=== PATIENT | male | born 1965 | race Two or more races ===

== ENCOUNTER 2024-04-06 11:37 | Inpatient (IN) | payer BC ==
--- NOTE | 2024-04-06 12:13 | ED ---
Upper Extremity HPI - General Chief Complaint: Extremity Injury, Upper Stated Complaint: Elbow Swelling Time Seen by Provider: 04/06/24 12:12 Source: patient, RN notes reviewed Mode of arrival: ambulatory Limitations: no limitations - History of Present Illness Initial Comments: 59 year old male presenting to the ER with a chief complaint of right elbow pain. Patient states approximately 2 weeks ago he accidentally hit his elbow and scraped it. He states since then he has been noticing swelling and pain to his right elbow. He reports on he started to notice redness spreading towards his hand and started to have pain with range of motion. Patient is not currently on any blood thinners. Tetanus status unknown. He denies any other injuries. Denies any fevers, chills or night sweats. No other complaints. - Related Data Home Medications Medication Instructions Recorded Confirmed Acetaminophen with Codeine 1 tab PO BID PRN 04/06/24 04/06/24 [Tylenol #4 Tablet] Aspirin EC [Ecotrin Low Dose] 81 mg PO DAILY 04/06/24 04/06/24 Dapagliflozin Propanediol [Farxiga] 10 mg PO DAILY 04/06/24 04/06/24 Gabapentin [Neurontin] 300 mg PO BID 04/06/24 04/06/24 Insulin Aspart Prot/Insuln Asp 25 units SQ DAILY 04/06/24 04/06/24 [NovoLOG MIX 70-30 Flexpen] Meloxicam [Mobic] 15 mg PO DAILY 04/06/24 04/06/24 Pioglitazone [Actos] 15 mg PO HS 04/06/24 04/06/24 Rosuvastatin [Crestor] 20 mg PO DAILY 04/06/24 04/06/24 Tirzepatide [Mounjaro] 5 mg SQ TU 04/06/24 04/06/24 lisinopriL [Zestril] 10 mg PO DAILY 04/06/24 04/06/24 metFORMIN HCL [Glucophage] 500 mg PO DAILY 04/06/24 04/06/24 valACYclovir HCL [Valtrex] 2,000 mg PO BID PRN 04/06/24 04/06/24 Allergies Allergy/AdvReac Type Severity Reaction Status Date / Time No Known Allergies Allergy Verified 04/06/24 15:20 Review of Systems ROS Statement: Those systems with pertinent positive or pertinent negative responses have been documented in the HPI. ROS Other: All systems not noted in ROS Statement are negative. Past Medical History Past Medical History: Diabetes Mellitus, Hypertension History of Any Multi-Drug Resistant Organisms: None Reported Past Surgical History: No Surgical Hx Reported Past Psychological History: No Psychological Hx Reported Smoking Status: Never smoker Past Alcohol Use History: Occasional Past Drug Use History: None Reported General Exam Limitations: no limitations General appearance: alert, in no apparent distress Respiratory exam: Present: normal lung sounds bilaterally. Absent: respiratory distress, wheezes, rales, rhonchi, stridor Cardiovascular Exam: Present: regular rate, normal rhythm, normal heart sounds. Absent: systolic murmur, diastolic murmur, rubs, gallop, clicks Extremities exam: Present: tenderness (Erythema and edema to right elbow. There is a fluctuant area over bursa. There is a 1 cm healed abrasion just proximal to elbow. There is surrounding erythema with distally spreading erythema.), other (2+ right dorsalis pedis pulse. Patient has full active range of motion but is painful.) Neurological exam: Present: alert, oriented X3, CN II-XII intact Skin exam: Present: warm, dry, intact, normal color. Absent: rash Course Vital Signs 04/06/24 04/06/24 04/06/24 11:39 13:48 15:45 Temperature 97.5 F L 98.5 F Pulse Rate 80 74 78 Respiratory 16 16 16 Rate Blood Pressure 150/82 125/69 125/73 O2 Sat by Pulse 99 100 97 Oximetry - Reevaluation(s) Reevaluation #1: 04/06/24 15:[address] White, [facility], for admission. Procedures - Incision & Drainage Consent Obtained: verbal consent Indication: bursitis Site: upper extremity (elbow) Size (cm): 7 Anesthetic Used: lidocaine 1%, without epi Amount (mLs): 2 I&D Cleaning Method: Chloroprep, Alcohol Wipe Sterile Field Used?: Yes Ultrasound used: No Needle Aspiration Performed?: Yes Irrigation Performed?: No I&D Drainage Obtained: Other (negative pressure no drainge) Patient Tolerated Procedure: well Medical Decision Making - Medical Decision Making Was pt. sent in by a medical professional or institution (, PA, MANUFACTURING PRODUCTION TECHNICIAN, urgent care, hospital, or care home...) When possible be specific @ -No Did you speak to anyone other than the patient for history (EMS, parent, family, police, friend...)? What history was obtained from this source @ -No Did you review nursing and triage notes (agree or disagree)? Why? @ -I reviewed and agree with nursing and triage notes Were old charts reviewed (outside hosp., previous admission, EMS record, old EKG, old radiological studies, urgent care reports/EKG's, care home records)? Report findings @ -No old charts were reviewed Differential Diagnosis (chest pain, altered mental status, abdominal pain women, abdominal pain men, vaginal bleeding, weakness, fever, dyspnea, syncope, headache, dizziness, GI bleed, back pain, seizure, CVA, palpatations, mental health, musculoskeletal)? @ -Differential Musculoskeletal: Muscular strain, contusion, ligament sprain, fracture, arthritis, septic arthritis, bursitis, cellulitis, muscle spasm, nerve compression, DVT, arterial occlusion, herpes zoster, electrolyte abnormality, tumor.... This is not meant to be in all inclusive list EKG interpreted by me (3pts min.). @ -None X-rays interpreted by me (1pt min.). @ -Right elbow x-ray interpreted me negative for acute osseous process. There is soft tissue edema. CT interpreted by me (1pt min.). @ -None done U/S interpreted by me (1pt. min.). @ -None done What testing was considered but not performed or refused? (CT, X-rays, U/S, la bs)? Why? @ -None What meds were considered but not given or refused? Why? @ -None Did you discuss the management of the patient with other professionals (professionals i.e. , PA, MANUFACTURING PRODUCTION TECHNICIAN, lab, RT, psych nurse, psychiatric social worker, document control assistant, teacher, horticultural technical officer, transplant case manager)? Give summary @ -Yes, case discussed with [facility], Dr. White. Was smoking cessation discussed for >3mins.? @ -No Was critical care preformed (if so, how long)? @ -No Were there social determinants of health that impacted care today? How? (Homelessness, low income, unemployed, alcoholism, drug addiction, transportation, low edu. Level, literacy, decrease access to med. care, care home, rehab)? @ -No Was there de-escalation of care discussed even if they declined (Discuss DNR or withdrawal of care, Hospice)? DNR status @ -No What co-morbidities impacted this encounter? (DM, HTN, Smoking, COPD, CAD, Cancer, CVA, ARF, Chemo, Hep., AIDS, mental health diagnosis, sleep apnea, morbid obesity)? @ -hypertension, diabetes Was patient admitted / discharged? Hospital course, mention meds given and route, prescriptions, significant lab abnormalities, going to OR and other pertinent info. @ -Admitted. 59 year old male presenting to the ER for evaluation of right elbow pain. History physical exam completed. Vitals within normal limits. Patient in no signs of acute distress and nontoxic-appearing. Right upper extremity neurovascular intact. There is significant edema and erythema to right elbow concerning of infection and /or bursitis. There is a 1 cm healed wound just proximal to elbow. Patient has full range of motion but is painful. Imaging obtained negative for acute osseous process, with soft tissue edema. Due to concern of septic bursitis laboratory studies obtained. Leukocytosis with a left shift WBC 14.6. CRP 14.2. Aspiration attempted but was unsuccessful in obtaining drainage, see note above. Due to laboratory studies and concern of septic bursitis admission was considered and discussed with [facility], Dr. White. Blood cultures obtained and patient started on vancomycin. Tetanus updated. Patient received PO tylenol for pain control in the ER. Orthopedics and infectious disease on consult. Patient agreeable for admission. Patient admitted in stable condition for further evaluation and treatment. Case discussed with ED attending, Dr. Christine. Undiagnosed new problem with uncertain prognosis? @ -No Drug Therapy requiring intensive monitoring for toxicity (Heparin, Nitro, Insulin, Cardizem)? @ -No Were any procedures done? @ -No Diagnosis/symptom? @ - r/o Septic bursitis Acute, or Chronic, or Acute on Chronic? @ -Acute Uncomplicated (without systemic symptoms) or Complicated (systemic symptoms)? @ -Complicated Side effects of treatment? @ -No Exacerbation, Progression, or Severe Exacerbation? @ -No Poses a threat to life or bodily function? How? (Chest pain, USA, ID, pneumonia, PE, COPD, DKA, ARF, appy, cholecystitis, CVA, Diverticulitis, Homicidal, Suicidal, threat to staff... and all critical care pts) @ -Yes, septic bursitis can lead to sepsis or septic arthritis. - Lab Data Result diagrams: 04/06/24 13:30 04/06/24 13:30 Lab Results 04/06/24 04/06/24 04/06/24 Range/Units 13:30 13:30 13:30 WBC 14.6 H (3.8-10.6) k/uL RBC 4.91 (4.30-5.90) m/uL Hgb 14.9 (13.0-17.5) gm/dL Hct 46.7 (39.0-53.0) % MCV 95.0 (80.0-100.0) fL MCH 30.3 (25.0-35.0) pg MCHC 31.9 (31.0-37.0) g/dL RDW 14.3 (11.5-15.5) % Plt Count 220 (150-450) k/uL MPV 8.6 Neutrophils % 75 % Lymphocytes % 14 % Monocytes % 7 % Eosinophils % 2 % Basophils % 0 % Neutrophils # 10.9 H (1.3-7.7) k/uL Lymphocytes # 2.0 (1.0-4.8) k/uL Monocytes # 1.1 H (0-1.0) k/uL Eosinophils # 0.2 (0-0.7) k/uL Basophils # 0.0 (0-0.2) k/uL Sodium 137 (137-145) mmol/L Potassium 5.0 (3.5-5.1) mmol/L Chloride 105 (98-107) mmol/L Carbon Dioxide 20 L (22-30) mmol/L Anion Gap 12 mmol/L BUN 29 H (9-20) mg/dL Creatinine 0.82 (0.66-1.25) mg/dL Est GFR (CKD-EPI)AfAm >90 (>60 ml/min/1.73 sqM) Est GFR (CKD-EPI)NonAf >90 (>60 ml/min/1.73 sqM) Glucose 81 (74-99) mg/dL Plasma Lactic Acid Kash 1.4 (0.7-2.0) mmol/L Calcium 9.9 (8.4-10.2) mg/dL Total Bilirubin 1.1 (0.2-1.3) mg/dL AST 42 (17-59) U/L ALT 40 (4-49) U/L Alkaline Phosphatase 73 (38-126) U/L C-Reactive Protein (<1.0) mg/dL Total Protein 7.7 (6.3-8.2) g/dL Albumin 4.5 (3.5-5.0) g/dL 04/06/24 Range/Units 13:30 WBC (3.8-10.6) k/uL RBC (4.30-5.90) m/uL Hgb (13.0-17.5) gm/dL Hct (39.0-53.0) % MCV (80.0-100.0) fL MCH (25.0-35.0) pg MCHC (31.0-37.0) g/dL RDW (11.5-15.5) % Plt Count (150-450) k/uL MPV Neutrophils % % Lymphocytes % % Monocytes % % Eosinophils % % Basophils % % Neutrophils # (1.3-7.7) k/uL Lymphocytes # (1.0-4.8) k/uL Monocytes # (0-1.0) k/uL Eosinophils # (0-0.7) k/uL Basophils # (0-0.2) k/uL Sodium (137-145) mmol/L Potassium (3.5-5.1) mmol/L Chloride (98-107) mmol/L Carbon Dioxide (22-30) mmol/L Anion Gap mmol/L BUN (9-20) mg/dL Creatinine (0.66-1.25) mg/dL Est GFR (CKD-EPI)AfAm (>60 ml/min/1.73 sqM) Est GFR (CKD-EPI)NonAf (>60 ml/min/1.73 sqM) Glucose (74-99) mg/dL Plasma Lactic Acid Kash (0.7-2.0) mmol/L Calcium (8.4-10.2) mg/dL Total Bilirubin (0.2-1.3) mg/dL AST (17-59) U/L ALT (4-49) U/L Alkaline Phosphatase (38-126) U/L C-Reactive Protein 14.2 H (<1.0) mg/dL Total Protein (6.3-8.2) g/dL Albumin (3.5-5.0) g/dL - Radiology Data Radiology results: report reviewed, image reviewed Disposition Clinical Impression: Septic bursitis of elbow Disposition: ADMITTED IP TO THIS [facility] Condition: Stable Referrals: Nonstaff,Physician [Primary Care Provider] - 1-2 days Time of Disposition: 15:26
[2024-04-06] MEDS: ACETAMINOPHEN TAB 325 MG TAB PO STA (12:29)
[2024-04-06] MEDS: DIPH,PERTUS(ACELL)TETVAC-LF 0.5 ML VIAL IM ONE (12:30)
--- NOTE | 2024-04-06 12:55 | XR ---
EXAMINATION TYPE: XR elbow complete RT DATE OF EXAM: 04/06/2024 COMPARISON: None HISTORY: Swelling TECHNIQUE: 3 view right elbow FINDINGS: Anterior fat pad is normal. No elevation of the posterior fat pad is evident. There is some mild soft tissue swelling over the olecranon. No acute fractures or dislocations are evident. Radial head aligns normally with the humerus. Radial olecranon junction is normal Follow up exams can be performed 7-10 days from acute trauma for continued pain IMPRESSION: 1. No acute osseous abnormality right elbow. 2. Soft tissue swelling at the olecranon.
[2024-04-06] MEDS: LIDOCAINE 1% INJ 10MG/ML (20 ML MDV) SQ ONE (13:33)
[2024-04-06 13:39] LABS: Basophils % (A) 0 %; Eosinophils # (A) 0.2 k/uL (0-0.7); Eosinophils % (A) 2 %; HCT 46.7 % (39.0-53.0); HGB 14.9 gm/dL (13.0-17.5); Lymphocytes % (A) 14 %; MCH 30.3 pg (25.0-35.0); MCHC 31.9 g/dL (31.0-37.0); Mean Platelet Volume 8.6; Monocytes # (A) 1.1 k/uL (0-1.0); Monocytes % (A) 7 %; Neutrophils # (A) 10.9 k/uL (1.3-7.7); Neutrophils % (A) 75 %; Platelet Count 220 k/uL (150-450); RBC 4.91 m/uL (4.30-5.90); RDW 14.3 % (11.5-15.5); WBC 14.6 k/uL (3.8-10.6)
[2024-04-06 13:55] LABS: ALT 40 U/L (4-49); AST 42 U/L (17-59); African American GFR (CKD) >90 (>60 ml/min/1.73 sqM); Albumin 4.5 g/dL (3.5-5.0); Alkaline Phosphatase 73 U/L (38-126); Anion Gap 12 mmol/L; Blood Urea Nitrogen 29 mg/dL (9-20); Calcium 9.9 mg/dL (8.4-10.2); Carbon Dioxide 20 mmol/L (22-30); Chloride 105 mmol/L (98-107); Glucose 81 mg/dL (74-99); Non-African American GFR(CKD) >90 (>60 ml/min/1.73 sqM); Sodium 137 mmol/L (137-145); Total Bilirubin 1.1 mg/dL (0.2-1.3); Total Protein 7.7 g/dL (6.3-8.2)
[2024-04-06] MEDS ORDERED: VANCOMYCIN IV PER PHARMACY 1 EACH MISC MISCELLANE PRN (15:22)
[2024-04-06] MEDS ORDERED: ACETAMINOPHEN TAB 325 MG TAB PO PRN (15:23)
[2024-04-06] MEDS ORDERED: ONDANSETRON 4 MG/2 ML VIAL IVP PRN (15:23)
[2024-04-06] MEDS ORDERED: NALOXONE 0.4 MG/ML 1 ML VIAL IV PRN (15:23)
[2024-04-06] MEDS: SODIUM CHLORIDE 0.9% 1,000 ML IV SCH (15:48)
[2024-04-06] MEDS: VANCOMYCIN 1,500 MG in SODIUM CHLORIDE 0.9% 500 ML 500 ML IVPB SCH (16:03)
[2024-04-06] MEDS: IBUPROFEN 400 MG TAB PO PRN (19:34)
[2024-04-06] MEDS ORDERED: DEXTROSE 50% SYRINGE 50 ML IVP PRN ×2 (20:54)
[2024-04-06 21:05] LABS: Glucose,Whole Blood 143 mg/dL (70-110)
--- NOTE | 2024-04-06 21:29 | P.HPIM ---
History of Present Illness H&P Date: 04/06/24 Chief Complaint: Right elbow pain Patient is a 59-year-old male with a past medical history of hypertension, diabetes type 2 insulin-dependent presents to ER with complaints of right elbow pain. Patient states that about 2 weeks ago he accidentally hit his elbow and had a small scrape. Since then he has been increasing swelling and pain to his right elbow. On started to notice redness spreading towards his hand and is also having pain when he is moving his fingers. Denies any fever or chills or night sweats. No nausea vomiting abdominal pain or diarrhea. Patient's tetanus status is unknown. Denies any other injuries. No chest pain or shortness of breath. No recent travel. X-ray of the elbow showed no acute osseous abnormality right elbow. Soft tissue swelling at the olecranial process. Laboratory data showed WBC 14.6 hemoglobin 14.9 and platelets 220 sodium 137 potassium 5.0 chloride 105 bicarb is 20 BUN 29 and creatinine 0.82 liver enzymes are not elevated CRP level is 14.2 Patient is currently not on any antibiotics. Review of Systems Constitutional: Patient denies any fever or chills . No generalized weakness or weight loss. Abdomen: Patient denied nausea vomiting and diarrhea and abdominal pain. Cardiovascular: Patient denies any chest pain or short of breath no palpitations. Respiratory: patient denied any cough or sputum production. No shortness of breath Neurologic: Patient denied any numbness or tingling. no headache. Musculoskeletal: Patient denies any complaints of joint swelling or deformity. Right elbow pain Skin: Negative Psychiatric: Negative Endocrine: No heat or cold intolerance. No recent weight gain. Genitourinary: No dysuria or hematuria. All other 14 point ROS negative except the above Past Medical History Past Medical History: Diabetes Mellitus, Hypertension History of Any Multi-Drug Resistant Organisms: None Reported Past Surgical History: No Surgical Hx Reported Past Psychological History: No Psychological Hx Reported Smoking Status: Never smoker Past Alcohol Use History: Occasional Past Drug Use History: None Reported Medications and Allergies Home Medications Medication Instructions Recorded Confirmed Type Acetaminophen with Codeine 1 tab PO BID PRN 04/06/24 04/06/24 History [Tylenol #4 Tablet] Aspirin EC [Ecotrin Low Dose] 81 mg PO DAILY 04/06/24 04/06/24 History Dapagliflozin Propanediol [Farxiga] 10 mg PO DAILY 04/06/24 04/06/24 History Gabapentin [Neurontin] 300 mg PO BID 04/06/24 04/06/24 History Insulin Aspart Prot/Insuln Asp 25 units SQ DAILY 04/06/24 04/06/24 History [NovoLOG MIX 70-30 Flexpen] Meloxicam [Mobic] 15 mg PO DAILY 04/06/24 04/06/24 History Pioglitazone [Actos] 15 mg PO HS 04/06/24 04/06/24 History Rosuvastatin [Crestor] 20 mg PO DAILY 04/06/24 04/06/24 History Tirzepatide [Mounjaro] 5 mg SQ TU 04/06/24 04/06/24 History lisinopriL [Zestril] 10 mg PO DAILY 04/06/24 04/06/24 History metFORMIN HCL [Glucophage] 500 mg PO DAILY 04/06/24 04/06/24 History valACYclovir HCL [Valtrex] 2,000 mg PO BID PRN 04/06/24 04/06/24 History Allergies Allergy/AdvReac Type Severity Reaction Status Date / Time No Known Allergies Allergy Verified 04/06/24 15:20 Physical Exam Vitals: Vital Signs Temp Pulse Pulse Resp BP BP Pulse Ox 04/06/24 18:08 97.9 F 79 16 129/78 99 04/06/24 17:44 75 16 125/70 99 04/06/24 16:02 75 14 115/70 98 04/06/24 15:45 98.5 F 78 16 125/73 97 04/06/24 13:48 74 16 125/69 100 04/06/24 11:39 97.5 F L 80 16 150/82 99 Intake and Output 04/06/24 04/06/24 04/06/24 06:59 14:59 22:59 Intake Total 75 Balance 75 Intake: Intake, IV Titration 75 Amount Sodium Chloride 0.9% 1, 75 000 ml @ 75 mls/hr IV . [id number] [facility] Rx#:[id number] Other: Weight 90.265 kg 90.265 kg PHYSICAL EXAMINATION: Patient is lying in the bed comfortably, no acute distress, awake alert and oriented.. HEENT: Normocephalic. Neck is supple. Pupils reactive. Nostrils clear. Oral cavity is moist. Neck reveals no JVD, carotid bruits, or thyromegaly. CHEST EXAMINATION: Trachea is central. Symmetrical expansion. Lung whiting clear to auscultation and percussion. CARDIAC: Normal S1, S2 with no gallops. No murmurs ABDOMEN: Soft. Bowel sounds normal. No organomegaly. No abdominal bruits. Extremities: reveal no edema. No clubbing or cyanosis. Right elbow swelling at the olecranian process with surrounding redness and tenderness. Neurologically awake, alert, oriented x3 with well-coordinated movements. No focal deficits noted Skin: No rash or skin lesions. Psychiatric: Coperative. Nonsuicidal Musculoskeletal: No joint swelling or deformity. Normal range of motion. Results CBC & Chem 7: 04/06/24 13:30 04/06/24 13:30 Labs: Abnormal Lab Results - Last 24 Hours (Table) 04/06/24 04/06/24 04/06/24 Range/Units 13:30 13:30 13:30 WBC 14.6 H (3.8-10.6) k/uL Neutrophils # 10.9 H (1.3-7.7) k/uL Monocytes # 1.1 H (0-1.0) k/uL Carbon Dioxide 20 L (22-30) mmol/L BUN 29 H (9-20) mg/dL C-Reactive Protein 14.2 H (<1.0) mg/dL Thrombosis Risk Factor Assmnt - DVT/VTE Prophylaxis DVT/VTE Prophylaxis: Pharmacologic Prophylaxis ordered - Choose All That Apply Any of the Below Risk Factors Present?: Yes Each Factor Represents 1 point: Age 41-60 years, Obesity (BMI >25) Other Risk Factors: No Thrombosis Risk Factor Assessment Total Risk Factor Score: 2 Thrombosis Risk Factor Assessment Level: Low Risk Assessment and Plan Assessment: Right elbow cellulitis with possible right olecranial bursitis Right elbow scrape wound about 2 weeks ago Diabetes type 2 insulin-dependent Hypertension DVT prophylaxis heparin subcu Plan: Patient will be continued on IV hydration and antibiotics in the form of vancomycin. Tetanus status unknown at this time. Follow-up blood cultures. Orthopedic surgery was consulted for possible bursitis. ID is on board. Continue to follow closely. Patient was started on insulin regimen and sliding scale for better blood sugar control. Continue with home medications.
[2024-04-06] MEDS: INSULIN ASPART (NovoLOG) 100 UNIT/ML VIAL SQ SCH (21:30)
[2024-04-06] MEDS: GABAPENTIN 300 MG CAP PO SCH (21:34)
[2024-04-06] MEDS: HEPARIN SODIUM,PORCINE 5,000 UNIT/ML 1 ML VIAL SQ SCH (23:04)
[2024-04-07 05:33] LABS: Glucose,Whole Blood 109 mg/dL (70-110)
[2024-04-07 06:31] LABS: African American GFR (CKD) >90 (>60 ml/min/1.73 sqM); Non-African American GFR(CKD) >90 (>60 ml/min/1.73 sqM)
--- NOTE | 2024-04-07 08:06 | P.CONS ---
History of Present Illness - Reason for Consult Consult date: 04/06/24 Rule out septic bursitis Requesting physician: Johanne Renee - Chief Complaint Right elbow pain and swelling x few days - History of Present Illness Patient is a 59-year-old male with a past medical history pertinent for diabetes mellitus and hypertension presenting to the hospital for increasing pain and swelling to the right elbow area patient mention about 2 weeks ago when he was working he accidentally hit his elbow and scraped it patient mention he was taking care of it by applying local antibiotic cream and initially was doing well however for the last day or so the patient does have increasing swelling and pain to the right elbow area patient describing the pain to be sharp almost 10 out of 10 in severity with associated swelling redness but no drainage and the patient has been complaining of some chills but denies high-grade fever with the symptoms the patient has been evaluated by the ER physician at time was made to aspirate the area however unsuccessful patient did have white count of 14.6 with a left shift creatinine 0.82 electrolytes and liver enzymes are normal patient did have x-ray of the elbow no acute bony abnormality soft tissue swelling at the olecranon patient was started on vancomycin infectious disease was consulted for further management of antibiotic therapy Review of Systems Positive point and negatives has been mentioned in the HPI, complete review of systems was performed and all other systems are negative Past Medical History Past Medical History: Diabetes Mellitus, Hypertension History of Any Multi-Drug Resistant Organisms: None Reported Past Surgical History: No Surgical Hx Reported Past Psychological History: No Psychological Hx Reported Smoking Status: Never smoker Past Alcohol Use History: Occasional Past Drug Use History: None Reported Medications and Allergies Home Medications Medication Instructions Recorded Confirmed Type Acetaminophen with Codeine 1 tab PO BID PRN 04/06/24 04/06/24 History [Tylenol #4 Tablet] Aspirin EC [Ecotrin Low Dose] 81 mg PO DAILY 04/06/24 04/06/24 History Dapagliflozin Propanediol [Farxiga] 10 mg PO DAILY 04/06/24 04/06/24 History Gabapentin [Neurontin] 300 mg PO BID 04/06/24 04/06/24 History Insulin Aspart Prot/Insuln Asp 25 units SQ DAILY 04/06/24 04/06/24 History [NovoLOG MIX 70-30 Flexpen] Meloxicam [Mobic] 15 mg PO DAILY 04/06/24 04/06/24 History Pioglitazone [Actos] 15 mg PO HS 04/06/24 04/06/24 History Rosuvastatin [Crestor] 20 mg PO DAILY 04/06/24 04/06/24 History Tirzepatide [Mounjaro] 5 mg SQ TU 04/06/24 04/06/24 History lisinopriL [Zestril] 10 mg PO DAILY 04/06/24 04/06/24 History metFORMIN HCL [Glucophage] 500 mg PO DAILY 04/06/24 04/06/24 History valACYclovir HCL [Valtrex] 2,000 mg PO BID PRN 04/06/24 04/06/24 History Allergies Allergy/AdvReac Type Severity Reaction Status Date / Time No Known Allergies Allergy Verified 04/06/24 15:20 Physical Exam Vitals: Vital Signs Temp Pulse Resp BP Pulse Ox 04/06/24 15:45 98.5 F 78 16 125/73 97 04/06/24 13:48 74 16 125/69 100 04/06/24 11:39 97.5 F L 80 16 150/82 99 Intake and Output 04/06/24 04/06/24 04/06/24 06:59 14:59 22:59 Other: Weight 90.265 kg GENERAL DESCRIPTION: Middle-aged male lying in bed, no distress. No tachypnea or accessory muscle of respiration use. HEENT: Shows Pallor , no scleral icterus. Oral mucous membrane is dry. No pharyngeal erythema or thrush NECK: Trachea central, no thyromegaly. LUNGS: Unlabored breathing. Clear to auscultation anteriorly. No wheeze or crackle. HEART: S1, S2, regular rate and rhythm. No loud murmur ABDOMEN: Soft, no tenderness , guarding or rigidity, no organomegaly EXTREMITIES: Right elbow did have swelling redness and tenderness no drainage SKIN: No rash, no masses palpable. NEUROLOGICAL: The patient is awake, alert, oriented x3, mood and affect normal. Results CBC & Chem 7: 04/06/24 13:30 04/07/24 05:42 Labs: Abnormal Lab Results - Last 24 Hours (Table) 04/06/24 04/06/24 04/06/24 Range/Units 13:30 13:30 13:30 WBC 14.6 H (3.8-10.6) k/uL Neutrophils # 10.9 H (1.3-7.7) k/uL Monocytes # 1.1 H (0-1.0) k/uL Carbon Dioxide 20 L (22-30) mmol/L BUN 29 H (9-20) mg/dL C-Reactive Protein 14.2 H (<1.0) mg/dL Assessment and Plan (1) Leukocytosis Current Visit: Yes Status: Acute Code(s): D72.829 - ELEVATED WHITE BLOOD CELL COUNT, UNSPECIFIED SNOMED Code(s): 453309358 (2) Septic bursitis of elbow Current Visit: Yes Status: Acute Code(s): M71.129 - OTHER INFECTIVE BURSITIS, UNSPECIFIED ELBOW SNOMED Code(s): 718498471 Plan: 1patient presented to hospital with pain and swelling to the right elbow area in this patient with elevated white count significant swelling and redness of the elbow likely representing septic olecranon bursitis and likely from gram-p ositive skin randi such as strep and Staph aureus 2await Ortho evaluation for possible aspiration I&D and deep culture 3vancomycin pharmacy to dose target trough of 15 while watching kidney functio n and Vanco trough closely We will follow on clinical condition and cultures to further adjust medication if needed Thank you for this consultation we will follow the patient along with you Dictation was produced using [employer]! dictation software. please excuse any grammatical, word or spelling errors. Time with Patient: Greater than 30
[2024-04-07] MEDS: INSULN ASP PRT/INSULIN ASPART 100 UNIT/ML 10 ML VIAL SQ SCH (08:31)
[2024-04-07] MEDS: ASPIRIN 81 MG PO SCH (08:38)
[2024-04-07] MEDS: ATORVASTATIN 40 MG TAB PO SCH (08:48)
[2024-04-07] MEDS: lisinopriL 10 MG TAB PO SCH (10:01)
[2024-04-07 11:08] LABS: Glucose,Whole Blood 111 mg/dL (70-110)
[2024-04-07 11:40] LABS: Basophils # (A) 0.02 X 10*3/uL (0.00-0.10); Basophils % (A) 0.2 %; Eosinophils # (A) 0.25 X 10*3/uL (0.04-0.35); Eosinophils % (A) 2.2 %; HCT 40.8 % (39.6-50.0); HGB 13.1 g/dL (13.0-17.0); Lymphocytes % (A) 16.4 %; MCH 31.1 pg (27.0-32.0); MCHC 32.1 g/dL (32.0-37.0); MCV 96.9 FL (80.0-97.0); Monocytes # (A) 1.22 X 10*3/uL (0.20-1.00); Monocytes % (A) 10.5 %; NRBC Per 100 WBC 0 X 10*3/uL (0.00-0.01); Neutrophils # (A) 8.18 X 10*3/uL (1.80-7.70); Neutrophils % (A) 70.3 %; Platelet Count 193 X 10*3/uL (140-440); RBC 4.21 X 10*6/uL (4.40-5.60); RDW 14.7 % (11.5-14.5); WBC 11.62 X 10*3/uL (4.50-10.00)
[2024-04-07 12:10] LABS: Calcium 8.7 mg/dL (8.7-10.3); Carbon Dioxide 20.6 mmol/L (21.6-31.8); Chloride 110 mmol/L (96-109); Glucose 125 mg/dL (70-110); Potassium 4.9 mmol/L (3.5-5.5); Sodium 142 mmol/L (135-145)
--- NOTE | 2024-04-07 12:41 | P.CNOR ---
History of Present Illness - [facility] Consult date: 04/07/24 Consult reason: other (Right elbow infection) History of present illness: Patient is a 59-year-old male who presented to [facility] on 04/06/2024 with concerns of a right elbow infection. Apparently the patient cut the posterior aspect of his right elbow a few weeks ago. He has been treating it conservatively. Earlier in the week he did notice some worsening redness to the area along with swelling that was trending above and below the elbow. He reported to [facility] for further evaluation. Imaging and lab tests were done, he demonstrated a white blood cell count that was elevated along with elevated CRP. Patient was admitted under internal medicine with consults for infectious disease and our orthopedic group with concerns for olecranon bursitis. Patient was evaluated today at bedside, he is resting comfortably, he appears to be in no acute distress. Patient feels that the redness and swelling both proximal and distal to the elbow are slightly improved since being started on the IV antibiotics. Patient is a type II diabetic that does take insulin. He denies any fevers or chills at this time. Besides the small cut to the elbow he denies any other trauma. He denies any previous surgery to the extremity. He denies any numbness or tingling to that extremity at this time. He has no other orthopedic complaints. Review of Systems Constitutional: Reports as per [facility] Past Medical History Past Medical History: Diabetes Mellitus, Hypertension History of Any Multi-Drug Resistant Organisms: None Reported Past Surgical History: No Surgical Hx Reported Past Psychological History: No Psychological Hx Reported Smoking Status: Never smoker Past Alcohol Use History: Occasional Past Drug Use History: None Reported Medications and Allergies Home Medications Medication Instructions Recorded Confirmed Type Acetaminophen with Codeine 1 tab PO BID PRN 04/06/24 04/06/24 History [Tylenol #4 Tablet] Aspirin EC [Ecotrin Low Dose] 81 mg PO DAILY 04/06/24 04/06/24 History Dapagliflozin Propanediol [Farxiga] 10 mg PO DAILY 04/06/24 04/06/24 History Gabapentin [Neurontin] 300 mg PO BID 04/06/24 04/06/24 History Insulin Aspart Prot/Insuln Asp 25 units SQ DAILY 04/06/24 04/06/24 History [NovoLOG MIX 70-30 Flexpen] Meloxicam [Mobic] 15 mg PO DAILY 04/06/24 04/06/24 History Pioglitazone [Actos] 15 mg PO HS 04/06/24 04/06/24 History Rosuvastatin [Crestor] 20 mg PO DAILY 04/06/24 04/06/24 History Tirzepatide [Mounjaro] 5 mg SQ TU 04/06/24 04/06/24 History lisinopriL [Zestril] 10 mg PO DAILY 04/06/24 04/06/24 History metFORMIN HCL [Glucophage] 500 mg PO DAILY 04/06/24 04/06/24 History valACYclovir HCL [Valtrex] 2,000 mg PO BID PRN 04/06/24 04/06/24 History Allergies Allergy/AdvReac Type Severity Reaction Status Date / Time No Known Allergies Allergy Verified 04/06/24 15:20 Physical Examination Right upper extremity: Healed abrasion noted on the posterior aspect of the elbow, there is similar surrounding erythema over the olecranon bursa. There is mild erythema proximal distal to the elbow. Range of motion is intact with both extension and flexion along with pronation and supination at the elbow, there is no significant pain noted. She has good range of motion at the shoulder. He has good range of motion at the wrist and hand No obvious strength deficits appreciated in the extremity Tenderness with patient noted over the olecranon bursa, he demonstrates no tenderness to the humerus, forearm, hand and wrist Sensory exam light touch is intact throughout the extremity Radial and ulnar pulse are 2+ Results - Labs Labs: Abnormal Lab Results - Last 24 Hours (Table) 04/06/24 04/06/24 04/06/24 Range/Units 13:30 13:30 13:30 WBC 14.6 H (3.8-10.6) k/uL RBC (4.40-5.60) X 10*6/uL RDW (11.5-14.5) % Immature Gran # (0.00-0.04) X 10*3/uL Neutrophils # 10.9 H (1.3-7.7) k/uL Monocytes # 1.1 H (0-1.0) k/uL Chloride (96-109) mmol/L Carbon Dioxide 20 L (22-30) mmol/L BUN 29 H (9-20) mg/dL BUN/Creatinine Ratio (12.00-20.00) Ratio Glucose (70-110) mg/dL POC Glucose (mg/dL) (70-110) mg/dL Hemoglobin A1c (<=6.0) % C-Reactive Protein 14.2 H (<1.0) mg/dL 04/06/24 04/07/24 04/07/24 Range/Units 21:03 05:42 05:42 WBC 11.62 H (3.8-10.6) k/uL RBC 4.21 L (4.40-5.60) X 10*6/uL RDW 14.7 H (11.5-14.5) % Immature Gran # 0.05 H (0.00-0.04) X 10*3/uL Neutrophils # 8.18 H (1.3-7.7) k/uL Monocytes # 1.22 H (0-1.0) k/uL Chloride (96-109) mmol/L Carbon Dioxide (22-30) mmol/L BUN (9-20) mg/dL BUN/Creatinine Ratio (.00-.00) Ratio Glucose (70-110) mg/dL POC Glucose (mg/dL) 143 H (70-110) mg/dL Hemoglobin A1c 7.4 H (<=6.0) % C-Reactive Protein (<1.0) mg/dL 04/07/24 04/07/24 Range/Units 05:42 11:06 WBC (3.8-10.6) k/uL RBC (4.40-5.60) X 10*6/uL RDW (11.5-14.5) % Immature Gran # (0.00-0.04) X 10*3/uL Neutrophils # (1.3-7.7) k/uL Monocytes # (0-1.0) k/uL Chloride 110 H (96-109) mmol/L Carbon Dioxide 20.6 L (22-30) mmol/L BUN (9-20) mg/dL BUN/Creatinine Ratio 27.50 H (12.00-20.00) Ratio Glucose 125 H (70-110) mg/dL POC Glucose (mg/dL) 111 H (70-110) mg/dL Hemoglobin A1c (<=6.0) % C-Reactive Protein (<1.0) mg/dL H & H 04/06/24 04/07/24 Range/Units 13:30 05:42 Hgb 14.9 13.1 (13.0-17.5) gm/dL Hct 46.7 40.8 (39.0-53.0) % Result Diagrams: 04/07/24 05:42 04/07/24 05:42 - Diagnostic results Elbow x-ray: report reviewed, image reviewed (X-rays and reports were reviewed of the right elbow. Images demonstrated no acute fractures or dislocations. Obvious swelling in the olecranon bursal region) Assessment and Plan Assessment: Right elbow septic olecranon bursitis Type II diabetic Other medical comorbidities Plan: I was able to discuss the case, this to include both physical exam findings and imaging studies my attending Dr. Carpenter. After discussion of treatment options with the patient also we would like to proceed with surgical intervention more specifically an incision and drainage with irrigation and debridement of the right olecranon bursa. Infectious disease recommendations appreciated, continue with IV antibiotics. Cultures will be taken at surgery N.p.o. prior to surgery Pain control, oral and IV medication as needed DVT prophylaxis, MACKENZIE hose and compression stockings at this time Other medical specialty recommendations appreciated Recommendations to follow Time with Patient: Less than 30
[2024-04-07 12:48] LABS: Glucose,Whole Blood 105 mg/dL (70-110)
[2024-04-07] MEDS: LACTATED RINGERS 900 ML IV ONE (13:05)
[2024-04-07] MEDS ORDERED: fentaNYL (PF) 50 MCG/ML 2 ML AMP ONE (13:05)
[2024-04-07] MEDS ORDERED: MIDAZOLAM 2 MG/2 ML VIAL ONE (13:05)
[2024-04-07] MEDS ORDERED: ONDANSETRON 4 MG/2 ML VIAL ONE (13:05)
[2024-04-07] MEDS ORDERED: LIDOCAINE 1% INJ 10MG/ML (20 ML MDV) ONE (13:05)
[2024-04-07] MEDS ORDERED: DEXAMETHASONE SOD PHOSPHATE 10 MG/ML 1 ML VIAL ONE (13:05)
[2024-04-07] MEDS ORDERED: PROPOFOL 10 MG/ML 20 ML VIAL IV ONE (13:05)
[2024-04-07] MEDS: VANCOMYCIN 1,000 MG VIAL MISCELLANE ONE (13:33)
[2024-04-07 14:06] LABS: Glucose,Whole Blood 103 mg/dL (70-110)
[2024-04-07] MEDS: HYDROcodone/APAP 7.5-325MG 1 EACH TAB PO PRN (14:50)
--- NOTE | 2024-04-07 15:28 | P.OP ---
Date of Procedure: 04/07/24 Preoperative Diagnosis: Current Active Problems Septic bursitis of elbow (Acute) Leukocytosis (Acute) Postoperative Diagnosis: Current Active Problems Septic bursitis of elbow (Acute) Leukocytosis (Acute) Procedure(s) Performed: INCISION AND DRAINAGE WITH IRRIGATION AND DEBRIDEMENT SKIN SOFT TISSUE AND BURSA OF RIGHT ELBOW OLECRANON BURSA USING THE FOLLOWING: -SKIN KNIFE TO INCISE AND REMOVE SKIN -RONGURE TO REMOVE NECROTIC TISSUE AND PHLEGMON -CURETTE TO SCRAPE BURSA AND REMOVE TISSUES BURSECTOMY RIGHT OLECRANON BURSA Implants: NONE Anesthesia: MAC Surgeon: Kodi Carpenter Estimated Blood Loss (ml): 20 IV fluids (ml): 700 Urine output (ml): 0 Pathology: other (X2 OCLERRANON BURSA) Condition: stable Disposition: PACU Indications for Procedure: 59 yo male presented with 3 weeks of ongoing swelling and drainage from his right elbow with feelings of fevers and chills as well as pain in the elbow. States he hit the elbow about three weeks ago causing a small abrasion which has festered a little and now is draining, red and swollen and does not seem to get better. Denies any other injury to the elbow. Has had family members cleaning it and try to release the tissue at home without resolution. He presented to the ED and was admitted for orthopedic consult and ID consult. Pt is resting comfortable in bed today. Right elbow is swollen and there is visible redness about the olecranon bursa with palpable flucctuence of the bursa. No pain with ROM of the elbow joint. No pain with supination/pronation. Pt denies any other issues at this time. Due to it going on for over three weeks now, we did recommend I&D with cultures and abx. He agrees. We discussed risks and benefits of surgery as well as potential outcomes and treatment paths. He understands and is in agreement with I&D today with cx and washout. Description of Procedure: Ortho op note The patient was seen and examined in the preoperative area. All preoperative protocols were followed. Informed consent was obtained risks and benefits of the procedure were discussed at length. Risks including bleeding infection damage to the surrounding tissue and risk of reoperation were discussed with the patient. Risk of anesthesia up to and including was a discussed with the patient. These are outlined in the risk reviewed. They were willing to accept these risks and all of the risks of surgery. The patient was given a weight-based dose of antibiotics in the form of ancef from the floor. The patient was seen and evaluated by the anesthesia team who deemed them fit for surgery. The site was marked, the patient was willing to proceed with the procedure. The patient was transferred to the operative suite by the Department of anesthesia. There were then drifted off to sleep by the department of anesthesia and MAC general anesthesia was used. Once adequate anesthesia had been obtained the patient was carefully transferred to the operative bed. All bony prominences were padded accordingly. SCDs were placed on the nonoperative lower extremities. Arms were well padded. Right arm was exposed and paced across his body on blankets. Preoperative briefing was done with the operative team and everyone was ready for the procedure to start. The patients [right arm was then prepped and draped in the normal sterile fashion. Timeout was then performed and all parties in agreement with the procedure to be performed. Curvilinear incision was made over the biomarked area of the olecranon bursa on the right and blunt dissectin taken down until there was a release of fluid over the bursa sac. This was a mixture of purulent and serous material. There was phlegmon noted around the bursal sac and inflammatory tissues. Bursectomy was done using knife, cautery and rongure. The area was debrided completely and bursal sac removed along with phlegmon. The area was then copiously irrigaed with NSS and Irricept followed by NSS. The wound was then closed in a layered fashion. 0 Vicryl placed deep in the deep subq, 2-0 in the superficial subq and 2-0 nylon in a horizontal mattress done in the skin. Wound edges approximated very well. The wound was then cleaned and dressed steril with adaptic, 4x4, abd and kerlix, this was then overwrapped with an robert wrap. The patient was then transferred back to their hospital bed. There were awakened by department of anesthesia having tolerated the procedure very well with no complications. The patient was then transported to the postoperative care unit in stable condition.
[2024-04-07 16:42] LABS: Glucose,Whole Blood 227 mg/dL (70-110)
[2024-04-07] MEDS: HYDROmorphone 0.5 MG/0.5 ML SYRINGE IVP PRN (17:54)
[2024-04-07 20:24] LABS: Glucose,Whole Blood 358 mg/dL (70-110)
--- NOTE | 2024-04-07 21:40 | P.PN ---
Subjective Progress Note Date: 04/07/24 Principal diagnosis: Reason for follow-up is right elbow septic olecranon bursitis Patient is a 59-year-old male with a past medical history pertinent for diabetes mellitus and hypertension presenting to the hospital for increasing pain and swelling to the right elbow area patient has been diagnosed with septic right elbow abdominal bursitis and this patient was status post I&D done by orthopedics on 04/07/2024. On today's evaluation that is 04/07/2024, the patient continues to be afebrile, the patient is on room air and breathing comfortably, the Pt denies having any chest pain or cough, the patient denies having any abdominal pain no vomiting or any diarrhea, still complaining of pain to the right elbow area postsurgery. Patient white count is down to 11.62, creatinine 0.8 cultures are currently pending Objective - Vital Signs Vital signs: Vital Signs Temp 97.8 F 04/07/24 07:15 Pulse 74 04/07/24 07:15 Resp 17 04/07/24 07:15 BP 137/76 04/07/24 07:15 Pulse Ox 97 04/07/24 07:15 FiO2 Intake & Output 04/06/24 04/07/24 04/07/24 18:59 06:59 18:59 Intake Total 75 Balance 75 Weight 90.265 kg Intake: Intake, IV Titration 75 Amount Sodium Chloride 0.9% 1, 75 000 ml @ 75 mls/hr IV . [id number] [facility] Rx#:[id number] Other: Voiding Method Toilet # Voids 2 - Exam GENERAL DESCRIPTION: Middle-age male lying in bed in no distress RESPIRATORY SYSTEM: Unlabored breathing , decreased breath sounds at bases HEART: S1 S2 regular rate and rhythm , ABDOMEN: Soft , no tenderness EXTREMITIES: Right elbow is currently dressed - Labs CBC & Chem 7: 04/07/24 05:42 04/07/24 05:42 Labs: Abnormal Lab Results - Last 24 Hours (Table) 04/06/24 04/06/24 04/06/24 Range/Units 13:30 13:30 13:30 WBC 14.6 H (3.8-10.6) k/uL RBC (4.40-5.60) X 10*6/uL RDW (11.5-14.5) % Immature Gran # (0.00-0.04) X 10*3/uL Neutrophils # 10.9 H (1.3-7.7) k/uL Monocytes # 1.1 H (0-1.0) k/uL Chloride (96-109) mmol/L Carbon Dioxide 20 L (22-30) mmol/L BUN 29 H (9-20) mg/dL BUN/Creatinine Ratio (12.00-20.00) Ratio Glucose (70-110) mg/dL POC Glucose (mg/dL) (70-110) mg/dL Hemoglobin A1c (<=6.0) % C-Reactive Protein 14.2 H (<1.0) mg/dL 04/06/24 04/07/24 04/07/24 Range/Units 21:03 05:42 05:42 WBC 11.62 H (3.8-10.6) k/uL RBC 4.21 L (4.40-5.60) X 10*6/uL RDW 14.7 H (11.5-14.5) % Immature Gran # 0.05 H (0.00-0.04) X 10*3/uL Neutrophils # 8.18 H (1.3-7.7) k/uL Monocytes # 1.22 H (0-1.0) k/uL Chloride (96-109) mmol/L Carbon Dioxide (22-30) mmol/L BUN (9-20) mg/dL BUN/Creatinine Ratio (12.00-20.00) Ratio Glucose (70-110) mg/dL POC Glucose (mg/dL) 143 H (70-110) mg/dL Hemoglobin A1c 7.4 H (<=6.0) % C-Reactive Protein (<1.0) mg/dL 04/07/24 04/07/24 Range/Units 05:42 11:06 WBC (3.8-10.6) k/uL RBC (4.40-5.60) X 10*6/uL RDW (11.5-14.5) % Immature Gran # (0.00-0.04) X 10*3/uL Neutrophils # (1.3-7.7) k/uL Monocytes # (0-1.0) k/uL Chloride 110 H (96-109) mmol/L Carbon Dioxide 20.6 L (22-30) mmol/L BUN (9-20) mg/dL BUN/Creatinine Ratio 27.50 H (12.00-20.00) Ratio Glucose 125 H (70-110) mg/dL POC Glucose (mg/dL) 111 H (70-110) mg/dL Hemoglobin A1c (<=6.0) % C-Reactive Protein (<1.0) mg/dL Assessment and Plan (1) Leukocytosis Current Visit: Yes Status: Acute Code(s): D72.829 - ELEVATED WHITE BLOOD GLORIA L COUNT, UNSPECIFIED SNOMED Code(s): 430230037 (2) Septic bursitis of elbow Current Visit: Yes Status: Acute Code(s): M71.129 - OTHER INFECTIVE BURSITIS, UNSPECIFIED ELBOW SNOMED Code(s): 990229427 Plan: 1patient presented to hospital with pain and swelling to the right elbow area in this patient with elevated white count significant swelling and redness of the elbow likely representing septic olecranon bursitis and likely from gram- positive skin randi such as strep and Staph aureus 2patient is status post Ortho evaluation and aspiration I&D and deep culture of the right elbow completed 04/07/2024 3patient to continue with vancomycin pharmacy to dose while waiting for the culture to finalize Dictation was produced using [employer] dictation software. please excuse any grammatical, word or spelling errors. Time with Patient: Less than 30
--- NOTE | 2024-04-07 23:44 | P.PN ---
Subjective Progress Note Date: 04/07/24 Patient is a 59-year-old male with a past medical history of hypertension, diabetes type 2 insulin-dependent presents to ER with complaints of right elbow pain. Patient states that about 2 weeks ago he accidentally hit his elbow and had a small scrape. Since then he has been increasing swelling and pain to his right elbow. On started to notice redness spreading towards his hand and is also having pain when he is moving his fingers. Denies any fever or chills or night sweats. No nausea vomiting abdominal pain or diarrhea. Patient's tetanus status is unknown. Denies any other injuries. No chest pain or shortness of breath. No recent travel. X-ray of the elbow showed no acute osseous abnormality right elbow. Soft tissue swelling at the olecranial process. Laboratory data showed WBC 14.6 hemoglobin 14.9 and platelets 220 sodium 137 potassium 5.0 chloride 105 bicarb is 20 BUN 29 and creatinine 0.82 liver enzymes are not elevated CRP level is 14.2 Patient is currently not on any antibiotics. 04/07/2024 Patient is resting in the bed. Awake alert and oriented x 3. No complaints of chest pain or shortness of breath. Right elbow pain is better. Patient is status post I&D with irrigation debridement of skin soft tissue and bursa of right elbow. Postoperative day 0. Patient is being continued on antibiotics and abdominal vancomycin. ID and orthopedic surgery is on board. Laboratory data showed WBC improved to 11.6 hemoglobin 13.1 and platelets 193. Sodium 142 potassium 4.9 chloride 110 bicarb is 20.6 BUN 22 and creatinine 0.8 and blood sugar 125. A1c 7.4. Current medications reviewed. Objective - Vital Signs Vital signs: Vital Signs Temp 98.1 F 04/07/24 20:00 Pulse 88 04/07/24 20:00 Resp 16 04/07/24 20:00 BP 147/78 04/07/24 20:00 Pulse Ox 95 04/07/24 20:00 FiO2 Intake & Output 04/07/24 04/07/24 04/08/24 06:59 18:59 06:59 Intake Total 600 Output Total 20 Balance 580 Weight 90.265 kg Intake: IV 600 Output: Estimated Blood Loss 20 Other: Voiding Method Toilet # Voids 2 5 # Bowel Movements 1 - Exam PHYSICAL EXAMINATION: Patient is lying in the bed comfortably, no acute distress, awake alert and oriented.. HEENT: Normocephalic. Neck is supple. Pupils reactive. Nostrils clear. Oral cavity is moist. Neck reveals no JVD, carotid bruits, or thyromegaly. CHEST EXAMINATION: Trachea is central. Symmetrical expansion. Lung whiting clear to auscultation and percussion. CARDIAC: Normal S1, S2 with no gallops. No murmurs ABDOMEN: Soft. Bowel sounds normal. No organomegaly. No abdominal bruits. Extremities: reveal no edema. No clubbing or cyanosis right elbow surgical site bandaged. Neurologically awake, alert, oriented x3 with well-coordinated movements. No focal deficits noted Skin: No rash or skin lesions. Psychiatric: Coperative. Nonsuicidal Musculoskeletal: No joint swelling or deformity. Normal range of motion. - Labs CBC & Chem 7: 04/07/24 05:42 04/07/24 05:42 Labs: Abnormal Lab Results - Last 24 Hours (Table) 04/07/24 04/07/24 04/07/24 Range/Units 05:42 05:42 05:42 WBC 11.62 H (4.50-10.00) X 10*3/uL RBC 4.21 L (4.40-5.60) X 10*6/uL RDW 14.7 H (11.5-14.5) % Immature Gran # 0.05 H (0.00-0.04) X 10*3/uL Neutrophils # 8.18 H (1.80-7.70) X 10*3/uL Monocytes # 1.22 H (0.20-1.00) X 10*3/uL Chloride 110 H (96-109) mmol/L Carbon Dioxide 20.6 L (21.6-31.8) mmol/L BUN/Creatinine Ratio 27.50 H (12.00-20.00) Ratio Glucose 125 H (70-110) mg/dL POC Glucose (mg/dL) (70-110) mg/dL Hemoglobin A1c 7.4 H (<=6.0) % 04/07/24 04/07/24 04/07/24 Range/Units 11:06 16:41 20:23 WBC (4.50-10.00) X 10*3/uL RBC (4.40-5.60) X 10*6/uL RDW (11.5-14.5) % Immature Gran # (0.00-0.04) X 10*3/uL Neutrophils # (1.80-7.70) X 10*3/uL Monocytes # (0.20-1.00) X 10*3/uL Chloride (96-109) mmol/L Carbon Dioxide (21.6-31.8) mmol/L BUN/Creatinine Ratio (12.00-20.00) Ratio Glucose (70-110) mg/dL POC Glucose (mg/dL) 111 H 227 H 358 H (70-110) mg/dL Hemoglobin A1c (<=6.0) % Assessment and Plan Assessment: Right elbow cellulitis with possible right olecranial bursitis.status post I&D with irrigation debridement of skin soft tissue and bursa of right elbow. Right elbow scrape wound about 2 weeks ago Diabetes type 2 insulin-dependent Hypertension DVT prophylaxis heparin subcu Plan: Patient will be continued on IV hydration and antibiotics in the form of vanc omycin. Pain management. Follow-up blood cultures. Patient is status post I&D of right olecranon bursa. ID is on board. Continue with insulin regimen and sliding scale for better blood sugar control. Continue with home medications.
[2024-04-08] MEDS: SODIUM CHLORIDE 0.9% 1,000 ML IV SCH (00:05)
[2024-04-08 00:26] LABS: Glucose,Whole Blood 217 mg/dL (70-110)
[2024-04-08 05:46] LABS: African American GFR (CKD) >90 (>60 ml/min/1.73 sqM); Non-African American GFR(CKD) >90 (>60 ml/min/1.73 sqM)
[2024-04-08 06:12] LABS: Glucose,Whole Blood 168 mg/dL (70-110)
[2024-04-08 11:05] LABS: Glucose,Whole Blood 211 mg/dL (70-110)
--- NOTE | 2024-04-08 11:56 | P.PN ---
Subjective Progress Note Date: 04/08/24 Principal diagnosis: Septic bursitis of elbow Leukocytosis Patient seen and examined this morning. Patient is resting comfortably in bed. Left elbow is elevated on pillow. Surgical dressing to the left elbow is clean dry and intact. Patient does report that his pain is managed on current regimen. Patient is looking forward to being discharged home, although we did discuss the need to wait for his wound cultures. Patient verbalizes understanding. Patient denies any numbness or tingling to the left upper extremity. Discussed with patient to continue with range of motion exercises, limit full flexion of the left elbow. No acute concerns at this time. Objective - Vital Signs Vital signs: Vital Signs Temp 97.8 F 04/08/24 07:18 Pulse 74 04/08/24 07:18 Resp 16 04/08/24 07:18 BP 157/78 04/08/24 07:18 Pulse Ox 98 04/08/24 07:18 FiO2 Intake & Output 04/07/24 04/08/24 04/08/24 18:59 06:59 18:59 Intake Total 600 Output Total 20 600 Balance 580 -600 Weight 90.265 kg Intake: IV 600 Output: Urine 600 Estimated Blood Loss 20 Other: Voiding Method Toilet Toilet Urinal # Voids 5 # Bowel Movements 1 - Exam Inspection: Surgical incision to the left elbow, dressing is clean dry and intact. Sensation: Sensation is equal, symmetric, bilaterally intact throughout the upper and lower extremities Palpation: Mild tenderness to palpation patient over the left elbow due to surgical procedure. Range of motion: Patient does have full range of motion bilateral upper and lower extremities on exam Motor: 5/5 in all major motor groups in the bilateral upper and lower extremities Special tests: Negative Homans bilaterally. Negative Stalin bilaterally. Negative clonus bilaterally. Neurovascular: Radial pulse intact, 2+ bilaterally. Cap refill under 3 seconds in digits upper extremities. - Labs CBC & Chem 7: 04/07/24 05:42 04/08/24 04:26 Labs: Abnormal Lab Results - Last 24 Hours (Table) 04/07/24 04/07/24 04/07/24 Range/Units 05:42 05:42 05:42 WBC 11.62 H (4.50-10.00) X 10*3/uL RBC 4.21 L (4.40-5.60) X 10*6/uL RDW 14.7 H (11.5-14.5) % Immature Gran # 0.05 H (0.00-0.04) X 10*3/uL Neutrophils # 8.18 H (1.80-7.70) X 10*3/uL Monocytes # 1.22 H (0.20-1.00) X 10*3/uL Chloride 110 H (96-109) mmol/L Carbon Dioxide 20.6 L (21.6-31.8) mmol/L BUN/Creatinine Ratio 27.50 H (12.00-20.00) Ratio Glucose 125 H (70-110) mg/dL POC Glucose (mg/dL) (70-110) mg/dL Hemoglobin A1c 7.4 H (<=6.0) % 04/07/24 04/07/24 04/07/24 Range/Units 11:06 16:41 20:23 WBC (4.50-10.00) X 10*3/uL RBC (4.40-5.60) X 10*6/uL RDW (11.5-14.5) % Immature Gran # (0.00-0.04) X 10*3/uL Neutrophils # (1.80-7.70) X 10*3/uL Monocytes # (0.20-1.00) X 10*3/uL Chloride (96-109) mmol/L Carbon Dioxide (21.6-31.8) mmol/L BUN/Creatinine Ratio (12.00-20.00) Ratio Glucose (70-110) mg/dL POC Glucose (mg/dL) 111 H 227 H 358 H (70-110) mg/dL Hemoglobin A1c (<=6.0) % 04/08/24 04/08/24 Range/Units 00:17 06:10 WBC (4.50-10.00) X 10*3/uL RBC (4.40-5.60) X 10*6/uL RDW (11.5-14.5) % Immature Gran # (0.00-0.04) X 10*3/uL Neutrophils # (1.80-7.70) X 10*3/uL Monocytes # (0.20-1.00) X 10*3/uL Chloride (96-109) mmol/L Carbon Dioxide (21.6-31.8) mmol/L BUN/Creatinine Ratio (12.00-20.00) Ratio Glucose (70-110) mg/dL POC Glucose (mg/dL) 217 H 168 H (70-110) mg/dL Hemoglobin A1c (<=6.0) % Microbiology - Last 24 Hours (Table) 04/06/24 16:00 Blood Culture - Preliminary Blood Assessment and Plan Assessment: Postop day 1: Left elbow irrigation and debridement Plan: -Appreciate information technology consultant and team management. -Awaiting wound cultures -Activity: Ambulate QID, OOB all meals, up and about, limit lifting bending twisting to less than 5 lbs. Use walker or cane if needed for stability. -Daily PT/OT, increase ambulation strength and balance. -Continue to elevate left elbow on pillow, limit full flexion. -Pain control: Adequate at this time -Meds: reviewed -GI ppx: senna, Miralax -DVT PPX: OK to restart Heparin tonight -Hygiene: Shower today. Maintain dressing clean and dry. -Encourage IS 10x/hr -Dispo: Clinically pending *I reviewed and discussed this case with my attending Dr. Carpenter, whom has reviewed this chart and films and is in agreement with assessment and plan of care as outlined above. I have personally seen and examined the patient, performed the documentation and the assessment and plan as written. Number of minutes spent on the visit: 20m.
[2024-04-08 14:19] VITALS: BP 134/76; PULSE 65; RESP 15; TEMP 97.6
[2024-04-08] MEDS: VANCOMYCIN TROUGH DUE 1 EACH MISC MISCELLANE ONE (15:04)
--- NOTE | 2024-04-08 16:20 | P.PN ---
Subjective Progress Note Date: 04/08/24 Principal diagnosis: Reason for follow-up is right elbow septic olecranon bursitis Patient is a 59-year-old male with a past medical history pertinent for diabetes mellitus and hypertension presenting to the hospital for increasing pain and swelling to the right elbow area patient has been diagnosed with septic right elbow abdominal bursitis and this patient was status post I&D done by orthopedics on 04/07/2024. On today's evaluation that is 04/08/2024, Patient is afebrile patient is currently on room air and denies having any shortness of breath, the patient denies any chest pain or cough, the patient denies any nausea vomiting did not have any abdominal pain and no diarrhea, the patient pain to the right elbow has decreased intensity patient has been insisting on going home. Patient did have a creatinine 0.73 cultures currently pending Objective - Vital Signs Vital signs: Vital Signs Temp 97.8 F 04/08/24 07:18 Pulse 74 04/08/24 08:00 Resp 16 04/08/24 08:00 BP 157/78 04/08/24 07:18 Pulse Ox 98 04/08/24 07:18 FiO2 Intake & Output 04/07/24 04/08/24 04/08/24 18:59 06:59 18:59 Intake Total 600 Output Total 20 600 Balance 580 -600 Weight 90.265 kg Intake: IV 600 Output: Urine 600 Estimated Blood Loss 20 Other: Voiding Method Toilet Toilet Toilet Urinal Urinal # Voids 5 # Bowel Movements 1 - Exam GENERAL DESCRIPTION: Middle-age male lying in bed in no distress RESPIRATORY SYSTEM: Unlabored breathing , decreased breath sounds at bases HEART: S1 S2 regular rate and rhythm , ABDOMEN: Soft , no tenderness EXTREMITIES: Right elbow is currently stage surrounding swelling redness decreased no purulent drainage - Labs CBC & Chem 7: 04/07/24 05:42 04/08/24 04:26 Labs: Abnormal Lab Results - Last 24 Hours (Table) 04/07/24 04/07/24 04/08/24 Range/Units 16:41 20:23 00:17 POC Glucose (mg/dL) 227 H 358 H 217 H (70-110) mg/dL 04/08/24 04/08/24 Range/Units 06:10 11:04 POC Glucose (mg/dL) 168 H 211 H (70-110) mg/dL Microbiology - Last 24 Hours (Table) 04/06/24 16:00 Blood Culture - Preliminary Blood Assessment and Plan (1) Leukocytosis Current Visit: Yes Status: Acute Code(s): D72.829 - ELEVATED WHITE BLOOD CELL COUNT, UNSPECIFIED SNOMED Code(s): 668549515 (2) Septic bursitis of elbow Current Visit: Yes Status: Acute Code(s): M71.129 - OTHER INFECTIVE BURSITIS, UNSPECIFIED ELBOW SNOMED Code(s): 366450308 Plan: 1patient presented to hospital with pain and swelling to the right elbow area in this patient with elevated white count significant swelling and redness of the elbow likely representing septic olecranon bursitis and likely from gram- positive skin randi such as strep and Staph aureus 2patient is status post Ortho evaluation and aspiration I&D and deep culture of the right elbow completed 04/07/2024 3patient is insisting on going home has been advised to stay in the hospital at least the culture to finalize however the patient remains to be persistent about leaving today prescription for oral doxycycline and Keflex has been sent to the pharmacy nursing staff to alert the admitting physician for getting okay for discharge patient is aware of the fact that it is too soon to get discharge and may end up having worsening infection and need for further surgery Dictation was produced using [employer] dictation software. please excuse any grammatical, word or spelling errors. Time with Patient: Greater than 30
[2024-04-08] MEDS ORDERED: NON FORMULARY DRUG (Tirzepatide [Mounjaro] 5 MG/0.5 ML Pen.Injctr) SQ SCH (20:53)
== END 2024-04-08 17:05 | disposition home or self-care (01) | DRG 501 ==
LOC: EC 11:37 → 4SSUR 15:44
PROVIDERS: ADMIT Hospitalist; ATTEND Hospitalist
PROC: 0R9L3ZZ Drainage of Right Elbow Joint, Percutaneous Approach (ICD-10-PCS; 2024-04-06)
PROC: 0MB30ZZ Excision of Right Elbow Bursa and Ligament, Open Approach (ICD-10-PCS; principal; 2024-04-07 10:02)
DX: M71.121 Other infective bursitis, right elbow (principal); L03.113 Cellulitis of right upper limb; E11.9 Type 2 diabetes mellitus without complications; I10 Essential (primary) hypertension; Z79.85 Long-term (current) use of injectable non-insulin antidiabetic drugs; Z79.1 Long term (current) use of non-steroidal anti-inflammatories (NSAID); Z79.82 Long term (current) use of aspirin; Z79.4 Long term (current) use of insulin; Z79.899 Other long term (current) drug therapy; Z79.84 Long term (current) use of oral hypoglycemic drugs; Z95.5 Presence of coronary angioplasty implant and graft; Z86.73 Personal history of transient ischemic attack (TIA), and cerebral infarction without residual deficits
CPT/HCPCS: 10060; 36415; 80048; 80053; 82565; 83036; 83605; 85025; 86140; 87040; 87070; 87075; 87077; 87102; 87116; 87186; 87205; 87206; 90471; 90715; 96365; 96366; 99285

== ENCOUNTER 2024-05-08 11:54 | Day surgery (SDC) | payer BC ==
[~2024-05-08 11:54] MED LIST: ACETAMINOPHEN TAB 500 MG TAB PO PRN; GABAPENTIN 300 MG CAP PO PRN; ONDANSETRON 4 MG/2 ML VIAL IVP PRN; Pre Op ABX Message 1 EACH MISC MISCELLANE ONE; TRANEXAMIC 1,000 MG/100ML-NACL 1,000 MG in SALINE 1 100ML.BAG IVPB PRN
[2024-05-08 12:25] VITALS: TEMP 97.2
[2024-05-08] MEDS: IV FLUID CONTINUATION 1,000 ML IV ONE ×2 (12:40→14:17)
[2024-05-08] MEDS ORDERED: ceFAZolin 1 GM/50 ML BAG (PMX) ONE (13:06)
[2024-05-08] MEDS ORDERED: ONDANSETRON 4 MG/2 ML VIAL ONE (13:06)
[2024-05-08] MEDS ORDERED: MIDAZOLAM 2 MG/2 ML VIAL ONE (13:06)
[2024-05-08] MEDS ORDERED: LIDOCAINE 1% INJ 10MG/ML (20 ML MDV) ONE (13:06)
[2024-05-08] MEDS ORDERED: DEXAMETHASONE SOD PHOSPHATE 10 MG/ML 1 ML VIAL ONE (13:06)
[2024-05-08] MEDS ORDERED: fentaNYL (PF) 50 MCG/ML 2 ML AMP ONE (13:06)
[2024-05-08] MEDS ORDERED: PROPOFOL 10 MG/ML 20 ML VIAL IV ONE (13:06)
[2024-05-08] MEDS ORDERED: TRANEXAMIC 1,000 MG/100ML-NACL PREMIX BAG ONE (13:06)
[2024-05-08] MEDS: LIDOCAINE 1%-EPI 1:100,000 20 ML VIAL SQ ONE (13:46)
--- NOTE | 2024-05-08 14:06 | P.OP ---
Date of Procedure: 05/08/24 Preoperative Diagnosis: RIGHT ELBOW SEPTIC BURSITIS S/P I&D WITH DRAINING SINUS TRACT Postoperative Diagnosis: RIGHT ELBOW SEPTIC BURSITIS S/P I&D WITH DRAINING SINUS TRACT Procedure(s) Performed: RIGHT ELBOW REVISION OLECRANON BURSECTOMY WITH IRRIGATION AND DEBRIDEMENT USING SKIN KNIFE TO EXCISE TRACT OF SINUS, CURETTE TO DEBRIDE WOUND BED AND KNIFE TO FRESHEN EDGES. Implants: NONE Anesthesia: MAC Surgeon: Kodi Carpenter Estimated Blood Loss (ml): 20 IV fluids (ml): 1,000 Urine output (ml): 0 Pathology: none sent Condition: stable Disposition: PACU Indications for Procedure: 59-YEAR-OLD MALE PATIENT OF THE OFFICE WITH CONTINUED DRAINAGE FROM HIS RIGHT OLECRANON BURSA. pATIENT HAD BURSECTOMY DUE TO SEPTIC OLECRANON BURSITIS APPROXIMATELY 8 WEEKS AGO. pATIENT CONTINUES TO DRAIN FROM HIS ELBOW. sMALL SINUS TRACT IN THIS AREA ALONG WITH SOME BURSAL TISSUE COMING OUT OF THIS AREA. wE DISCUSSED RISKS AND BENEFITS OF CONSERVATIVE VERSUS SURGICAL TREATMENT IN THIS TIME PATIENT ELECTED FOR SURGICAL TREATMENT IN THE FORM OF EXCISIONAL DEBRIDEMENT WELL BURSECTOMY OF THE RIGHT ELBOW. wE DISCUSSED AGAIN REST AND BENEFITS OF THE PROCEDURE INCLUDING RISK OF BLEEDING INFECTION DAMAGE TRANSITION RISK OF REOPERATION RISK OF ANESTHESIA UP TO AND INCLUDING WAS ONLY ASSUME THESE RISKS AND ALL RISKS OF SURGERY. pATIENT WAS READY AND WILLING TO PROCEED WITH THE PROCEDURE. Description of Procedure: The patient was seen and examined in the preoperative area. All preoperative protocols were followed. Informed consent was obtained risks and benefits of the procedure were discussed at length. Risks including bleeding infection damage to the surrounding tissue and risk of reoperation were discussed with the patient. Risk of anesthesia up to and including was a discussed with the patient. These are outlined in the risk reviewed. They were willing to accept these risks and all of the risks of surgery. The patient was given a weight-ba sed dose of antibiotics in the form of [2 g Ancef. The patient was seen and evaluated by the anesthesia team who deemed them fit for surgery. The site was marked, the patient was willing to proceed with the procedure. The patient was transferred to the operative suite by the Department of anesthesia. There were then drifted off to sleep by the department of anesthesia and Keshawn elementaryanesthesia was used. Once adequate anesthesia had been obtained the patient was carefully transferred to the operative bed. All bony prominences were padded accordingly. SCDs were placed on the nonoperative lower extremities. Arms were well padded. right arm and elbow were exposed placed on a chest pad across the patient's body. Preoperative briefing was done with the operative team and everyone was ready for the procedure to start. The patients [right arm was then prepped and draped in the normal sterile fashion. Timeout was then performed and all parties in agreement with the procedure to be performed. the draining sinus tract was identified in the right elbow. An elliptical incision was made around this area to excise the tract with a skin knife. Wound edges were freshened with a skin knife and scraped curet. Wound bed was scraped with a knife and further bursectomy is done of this area. Small amount of undermining was done to freshen and relieve the edges of any tension. We then irrigated the wound thoroughly with Irricept followed by a normal sterile saline. To gross hemostasis performed. The wound was then closed with 0 Vicryl and 2-0 nylon in a mattress fashion. Wound edges approximated very well. The wound was then dressed sterilely with Adaptic 4 x 4 ABDs and web roll. This was then overwrapped with an Juancarlos wrap. The patient was then transferred back to their hospital bed. There were awakened by department of anesthesia having tolerated the procedure very well with no complications. The patient was then transported to the postoperative care unit in stable condition.
[2024-05-08] MEDS: LACTATED RINGERS 1,000 ML BAG IV STA (14:18)
[2024-05-08 14:32] VITALS: PULSE 73; RESP 16
[2024-05-08 14:46] VITALS: BP 141/74
[2024-05-09 06:58] LABS: Glucose,Whole Blood 95 mg/dL (70-110)
== END 2024-05-08 15:18 | disposition home or self-care (01) ==
LOC: OR 11:54
PROVIDERS: ATTEND Orthopaedic Surgery
DX: M70.21 Olecranon bursitis, right elbow

== ENCOUNTER 2024-07-06 18:55 | Emergency (ER) | payer BC ==
--- NOTE | 2024-07-06 18:59 | ED ---
Weakness HPI - General Stated complaint: weakness/nausea Time Seen by Provider: 07/06/24 18:59 Source: RN notes reviewed, old records reviewed Limitations: no limitations - History of Present Illness MD Complaint: generalized weakness -: days(s) Location: generalized Severity: mild Quality: aching Consistency: constant Improves with: none Worsens with: none Context: history of similar Associated Symptoms: denies other symptoms - Related Data Home Medications Medication Instructions Recorded Confirmed Acetaminophen with Codeine 1 tab PO BID PRN 04/06/24 04/06/24 [Tylenol #4 Tablet] Aspirin EC [Ecotrin Low Dose] 81 mg PO DAILY 04/06/24 04/06/24 Dapagliflozin Propanediol [Farxiga] 10 mg PO DAILY 04/06/24 04/06/24 Gabapentin [Neurontin] 300 mg PO BID 04/06/24 04/06/24 Insulin Aspart Prot/Insuln Asp 25 units SQ DAILY 04/06/24 04/06/24 [NovoLOG MIX 70-30 Flexpen] Meloxicam [Mobic] 15 mg PO DAILY 04/06/24 04/06/24 Pioglitazone [Actos] 15 mg PO HS 04/06/24 04/06/24 Rosuvastatin [Crestor] 20 mg PO DAILY 04/06/24 04/06/24 Tirzepatide [Mounjaro] 5 mg SQ TU 04/06/24 04/06/24 lisinopriL [Zestril] 10 mg PO DAILY 04/06/24 04/06/24 metFORMIN HCL [Glucophage] 500 mg PO DAILY 04/06/24 04/06/24 valACYclovir HCL [Valtrex] 2,000 mg PO BID PRN 04/06/24 04/06/24 Previous Rx's Medication Instructions Recorded Cephalexin [Keflex] 500 mg PO Q6HR 10 Days #40 cap 04/08/24 Doxycycline [Vibramycin] 100 mg PO BID 10 Days #20 capsule 04/08/24 HYDROcodone/APAP 5-325MG [Tutwiler 1 tab PO Q4HR PRN 3 Days #18 tab 05/08/24 5-325] cefaDROXiL [Duricef] 500 mg PO Q12HR #30 cap 05/08/24 Allergies Allergy/AdvReac Type Severity Reaction Status Date / Time No Known Allergies Allergy Verified 07/06/24 19:08 Review of Systems ROS Statement: Those systems with pertinent positive or pertinent negative responses have been documented in the HPI. ROS Other: All systems not noted in ROS Statement are negative. Past Medical History Past Medical History: Diabetes Mellitus, Hypertension History of Any Multi-Drug Resistant Organisms: None Reported Past Surgical History: No Surgical Hx Reported Past Psychological History: No Psychological Hx Reported Smoking Status: Never smoker Past Alcohol Use History: Occasional Past Drug Use History: None Reported General Exam General appearance: alert, in no apparent distress Head exam: Present: atraumatic, normocephalic, normal inspection Eye exam: Present: normal appearance, PERRL, EOMI. Absent: scleral icterus, conjunctival injection, periorbital swelling ENT exam: Present: normal exam, mucous membranes moist Neck exam: Present: normal inspection. Absent: tenderness, meningismus, lymphadenopathy Respiratory exam: Present: normal lung sounds bilaterally. Absent: respiratory distress, wheezes, rales, rhonchi, stridor Cardiovascular Exam: Present: regular rate, normal rhythm, normal heart sounds. Absent: systolic murmur, diastolic murmur, rubs, gallop, clicks GI/Abdominal exam: Present: soft, normal bowel sounds. Absent: distended, tenderness, guarding, rebound, rigid Extremities exam: Present: normal inspection, full ROM, normal capillary refill. Absent: tenderness, pedal edema, joint swelling, calf tenderness Back exam: Present: normal inspection Neurological exam: Present: alert, oriented X3, CN II-XII intact Psychiatric exam: Present: normal affect, normal mood Skin exam: Present: warm, dry, intact, normal color. Absent: rash Course Vital Signs 07/06/24 07/06/24 07/06/24 18:56 20:00 20:33 Temperature 98.1 F Pulse Rate 96 87 87 Respiratory 18 16 16 Rate Blood Pressure 123/82 132/75 138/87 O2 Sat by Pulse 98 95 95 Oximetry - Reevaluation(s) Reevaluation #1: 07/06/24 19:46 Medical records reviewed Reevaluation #4: Was pt. sent in by a medical professional or institution (, PA, GOLD FRAME ASSEMBLER, urgent care, hospital, or assisted...) When possible be specific @ -no Did you speak to anyone other than the patient for history (EMS, parent, family, police, friend...)? What history was obtained from this source @ -no Did you review nursing and triage notes (agree or disagree)? Why? @ -agree Are old charts reviewed (outside hosp., previous admission, EMS record, old EKG, old radiological studies, urgent care reports/EKG's, assisted records)? Report findings @ -yes Differential Diagnosis (chest pain, altered mental status, abdominal pain women, abdominal pain men, vaginal bleeding, weakness, fever, dyspnea, syncope, headache, dizziness, GI bleed, back pain, seizure, CVA, palpatations, mental health, musculoskeletal)? @ -prior EKG interpreted by me (3pts min.). @ -yes X-rays interpreted by me (1pt min.). @ -yes negative for acute disease CT interpreted by me (1pt min.). @ -no U/S interpreted by me (1pt. min.). @ -no What testing was considered but not performed or refused? (CT, X-rays, U/S, labs)? Why? @ -none What meds were considered but not given or refused? Why? @ -none Did you discuss the management of the patient with other professionals (professionals i.e. , PA, GOLD FRAME ASSEMBLER, lab, RT, psych nurse, medical social consultant, ball mill operator, teacher, employment security officer, casey saw operator)? Give summary @ -no Was smoking cessation discussed for >3mins.? @ -no Was critical care preformed (if so, how long)? @ -no Were there social determinants of health that impacted care today? How? (Homelessness, low income, unemployed, alcoholism, drug addiction, transportation, low edu. Level, literacy, decrease access to med. care, alf, rehab)? @ -none Was there de-escalation of care discussed even if they declined (Discuss DNR or withdrawal of care, Hospice)? DNR status @ -no What co-morbidities impacted this encounter? (DM, HTN, Smoking, COPD, CAD, Cancer, CVA, ARF, Chemo, Hep., AIDS, mental health diagnosis, sleep apnea, morbid obesity)? @ -none Was patient admitted / discharged? Hospital course, mention meds given and route, prescriptions, significant lab abnormalities, going to OR and other pertinent info. @ - Undiagnosed new problem with uncertain prognosis? @ -no Drug Therapy requiring intensive monitoring for toxicity (Heparin, Nitro, Insulin, Cardizem)? @ -no Were any procedures done? @ -no Diagnosis/symptom? @ - Acute, or Chronic, or Acute on Chronic? @ -Acute Uncomplicated (without systemic symptoms) or Complicated (systemic symptoms)? @ -Complicated Side effects of treatment? @ -no Exacerbation, Progression, or Severe Exacerbation? @ -exacerbation Poses a threat to life or bodily function? How? (Chest pain, USA, MA, pneumonia, PE, COPD, DKA, ARF, appy, cholecystitis, CVA, Diverticulitis, Homicidal, Suicidal, threat to staff... and all critical care pts) @ -yes Reevaluation #5: Differential Weakness: Hypoglycemia, shock, sepsis, hyponatremia, anemia, infection, MA, ETOH, adverse medicine reaction, overdose, stroke, this is not meant to be an all-inclusive list. EKG Findings - EKG Comments: EKG Findings:: EKG is sinus 94 GA 167 QRS 101 QTc 437 - EKG Results: EKG: interpreted by JASMINE Medical Decision Making - Lab Data Result diagrams: 07/06/24 19:37 07/06/24 19:37 Lab Results 07/06/24 07/06/24 07/06/24 Range/Units 19:35 19:37 19:37 WBC 9.3 (3.8-10.6) k/uL RBC 5.07 (4.30-5.90) m/uL Hgb 15.8 (13.0-17.5) gm/dL Hct 49.7 (39.0-53.0) % MCV 97.9 (80.0-100.0) fL MCH 31.1 (25.0-35.0) pg MCHC 31.7 (31.0-37.0) g/dL RDW 14.5 (11.5-15.5) % Plt Count 186 (150-450) k/uL MPV 7.7 Neutrophils % 75 % Lymphocytes % 16 % Monocytes % 6 % Eosinophils % 1 % Basophils % 0 % Neutrophils # 7.0 (1.3-7.7) k/uL Lymphocytes # 1.5 (1.0-4.8) k/uL Monocytes # 0.6 (0-1.0) k/uL Eosinophils # 0.1 (0-0.7) k/uL Basophils # 0.0 (0-0.2) k/uL PT 10.8 (10.0-12.5) sec INR 1.0 (<1.2) APTT 23.2 (22.0-30.0) sec Sodium (137-145) mmol/L Potassium (3.5-5.1) mmol/L Chloride (98-107) mmol/L Carbon Dioxide (22-30) mmol/L Anion Gap mmol/L BUN (9-20) mg/dL Creatinine (0.66-1.25) mg/dL Est GFR (CKD-EPI)AfAm (>60 ml/min/1.73 sqM) Est GFR (CKD-EPI)NonAf (>60 ml/min/1.73 sqM) Glucose (74-99) mg/dL Plasma Lactic Acid Kash (0.7-2.0) mmol/L Calcium (8.4-10.2) mg/dL Phosphorus (2.5-4.5) mg/dL Magnesium (1.6-2.3) mg/dL Total Bilirubin (0.2-1.3) mg/dL AST (17-59) U/L ALT (4-49) U/L Alkaline Phosphatase (38-126) U/L Troponin I (0.000-0.034) ng/mL NT-Pro-B Natriuret Pep pg/mL Total Protein (6.3-8.2) g/dL Albumin (3.5-5.0) g/dL TSH (0.465-4.680) mIU/L Influenza Type A (PCR) Not Detected (Not Detectd) Influenza Type B (PCR) Not Detected (Not Detectd) RSV (PCR) Not Detected (Not Detectd) SARS-CoV-2 (PCR) Detected A (Not Detectd) 07/06/24 07/06/24 07/06/24 Range/Units 19:37 19:37 19:37 WBC (3.8-10.6) k/uL RBC (4.30-5.90) m/uL Hgb (13.0-17.5) gm/dL Hct (39.0-53.0) % MCV (80.0-100.0) fL MCH (25.0-35.0) pg MCHC (31.0-37.0) g/dL RDW (11.5-15.5) % Plt Count (150-450) k/uL MPV Neutrophils % % Lymphocytes % % Monocytes % % Eosinophils % % Basophils % % Neutrophils # (1.3-7.7) k/uL Lymphocytes # (1.0-4.8) k/uL Monocytes # (0-1.0) k/uL Eosinophils # (0-0.7) k/uL Basophils # (0-0.2) k/uL PT (10.0-12.5) sec INR (<1.2) APTT (22.0-30.0) sec Sodium 141 (137-145) mmol/L Potassium 4.0 (3.5-5.1) mmol/L Chloride 108 H (98-107) mmol/L Carbon Dioxide 20 L (22-30) mmol/L Anion Gap 13 mmol/L BUN 16 (9-20) mg/dL Creatinine 0.87 (0.66-1.25) mg/dL Est GFR (CKD-EPI)AfAm >90 (>60 ml/min/1.73 sqM) Est GFR (CKD-EPI)NonAf >90 (>60 ml/min/1.73 sqM) Glucose 114 H (74-99) mg/dL Plasma Lactic Acid Kash 2.0 (0.7-2.0) mmol/L Calcium 9.5 (8.4-10.2) mg/dL Phosphorus 2.7 (2.5-4.5) mg/dL Magnesium 1.9 (1.6-2.3) mg/dL Total Bilirubin 0.7 (0.2-1.3) mg/dL AST 69 H (17-59) U/L ALT 62 H (4-49) U/L Alkaline Phosphatase 60 (38-126) U/L Troponin I <0.012 (0.000-0.034) ng/mL NT-Pro-B Natriuret Pep <20 pg/mL Total Protein 6.8 (6.3-8.2) g/dL Albumin 4.4 (3.5-5.0) g/dL TSH 0.452 L (0.465-4.680) mIU/L Influenza Type A (PCR) (Not Detectd) Influenza Type B (PCR) (Not Detectd) RSV (PCR) (Not Detectd) SARS-CoV-2 (PCR) (Not Detectd) Disposition Clinical Impression: Coronavirus infection Disposition: HOME SELF-CARE Condition: Good Instructions (If sedation given, give patient instructions): Coronavirus Disease 2019 (COVID-19) Is patient prescribed a controlled substance at d/c from ED?: No Referrals: Darcie Willingham DO [Primary Care Provider] - 1-2 days Time of Disposition: 20:40
[2024-07-06 19:08] VITALS: TEMP 98.1
[2024-07-06] MEDS: SODIUM CHLORIDE 0.9% 500 ML 500 ML IV STA (19:29)
[2024-07-06] MEDS: SODIUM CHLORIDE 0.9% 1,000 ML IV STA ×2 (19:29→19:43)
[2024-07-06 19:48] LABS: Basophils % (A) 0 %; Eosinophils # (A) 0.1 k/uL (0-0.7); Eosinophils % (A) 1 %; HCT 49.7 % (39.0-53.0); HGB 15.8 gm/dL (13.0-17.5); Lymphocytes # (A) 1.5 k/uL (1.0-4.8); Lymphocytes % (A) 16 %; MCH 31.1 pg (25.0-35.0); MCHC 31.7 g/dL (31.0-37.0); MCV 97.9 fL (80.0-100.0); Mean Platelet Volume 7.7; Monocytes # (A) 0.6 k/uL (0-1.0); Monocytes % (A) 6 %; Neutrophils % (A) 75 %; Platelet Count 186 k/uL (150-450); RBC 5.07 m/uL (4.30-5.90); RDW 14.5 % (11.5-15.5); WBC 9.3 k/uL (3.8-10.6)
[2024-07-06] MEDS: ACETAMINOPHEN IV (For NPO) 1,000 MG in EMPTY BAG 1 BAG IVPB STA (19:57)
--- NOTE | 2024-07-06 19:57 | XR ---
EXAMINATION TYPE: XR chest 1V portable DATE OF EXAM: 07/06/2024 7:53 PM COMPARISON: None available. CLINICAL INDICATION: Male, 59 years old with history of cough; H TECHNIQUE: XR chest 1V portable Frontal view of the chest. FINDINGS: Lungs/Pleura: There is no evidence of pleural effusion, focal consolidation, or pneumothorax. Pulmonary vascularity: Unremarkable. Heart/mediastinum: Cardiomediastinal silhouette is unremarkable. Musculoskeletal: No acute osseous pathology. Other findings: None IMPRESSION: No acute cardiopulmonary disease/process. [facility], , 07/06/2024 7:55 PM
[2024-07-06] MEDS: ONDANSETRON 4 MG/2 ML VIAL IVP STA (19:58)
[2024-07-06 20:01] VITALS: PULSE 87; RESP 16
[2024-07-06 20:02] LABS: Partial Thromboplastin Time 23.2 sec (22.0-30.0); Prothrombin Time 10.8 sec (10.0-12.5)
[2024-07-06 20:08] LABS: ALT 62 U/L (4-49); AST 69 U/L (17-59); African American GFR (CKD) >90 (>60 ml/min/1.73 sqM); Albumin 4.4 g/dL (3.5-5.0); Alkaline Phosphatase 60 U/L (38-126); Anion Gap 13 mmol/L; Blood Urea Nitrogen 16 mg/dL (9-20); Calcium 9.5 mg/dL (8.4-10.2); Carbon Dioxide 20 mmol/L (22-30); Chloride 108 mmol/L (98-107); Glucose 114 mg/dL (74-99); Magnesium 1.9 mg/dL (1.6-2.3); Non-African American GFR(CKD) >90 (>60 ml/min/1.73 sqM); Phosphorus 2.7 mg/dL (2.5-4.5); Sodium 141 mmol/L (137-145); Total Bilirubin 0.7 mg/dL (0.2-1.3); Total Protein 6.8 g/dL (6.3-8.2)
[2024-07-06 20:16] LABS: NT-Pro-B-Type Natriuretic Pept <20 pg/mL
[2024-07-06 20:34] VITALS: BP 138/87
[2024-07-06] MEDS: KETOROLAC 15 MG/ML 1 ML VIAL IVP STA (20:42)
[2024-07-06] MEDS: DEXAMETHASONE SOD PHOSPHATE 10 MG/ML 1 ML VIAL IVP STA (20:44)
== END 2024-07-06 20:54 | disposition home or self-care (01) ==
LOC: EC 18:55
DX: R53.1 Weakness (principal); B97.29 Other coronavirus as the cause of diseases classified elsewhere
CPT/HCPCS: 36415; 93005; 83880; 80053; 82375; 83605; 83735; 84100; 84443; 84484; 85025; 85610; 85730; 87636; 71045; 99285; 96374; 96375; 96361; J1100; J2405; J1885

== ENCOUNTER 2024-11-29 18:07 | Emergency (ER) | payer BC ==
[2024-11-29 18:22] VITALS: RESP 18
[2024-11-29] MEDS: TRANEXAMIC ACID 1,000 MG/10 ML VIAL IRRIGATION ONE (18:43)
[2024-11-29] MEDS: HYDROmorphone 2 MG/ML 1 ML SYRINGE IM STA ×2 (18:50→21:25)
[2024-11-29] MEDS: ONDANSETRON ODT 4 MG TAB PO STA (18:54)
--- NOTE | 2024-11-29 20:31 | ED ---
Wound/Laceration HPI - General Chief Complaint: Wound/Laceration Stated Complaint: Right hand injury Time Seen by Provider: 11/29/24 18:26 Source: patient Mode of arrival: ambulatory Limitations: no limitations - History of Present Illness Initial Comments: 59-year-old male presenting with chief complaint of laceration to the right index finger. Patient was using a saw when he accidentally cut his finger. He has a large skin avulsion over the posterior surface of the finger. He still has range of motion, admits to pain with range of motion. His last tetanus shot was a few months ago. - Related Data Home Medications Medication Instructions Recorded Confirmed Acetaminophen with Codeine 1 tab PO BID PRN 04/06/24 04/06/24 [Tylenol #4 Tablet] Aspirin EC [Ecotrin Low Dose] 81 mg PO DAILY 04/06/24 04/06/24 Dapagliflozin Propanediol [Farxiga] 10 mg PO DAILY 04/06/24 04/06/24 Gabapentin [Neurontin] 300 mg PO BID 04/06/24 04/06/24 Insulin Aspart Prot/Insuln Asp 25 units SQ DAILY 04/06/24 04/06/24 [NovoLOG MIX 70-30 Flexpen] Meloxicam [Mobic] 15 mg PO DAILY 04/06/24 04/06/24 Pioglitazone [Actos] 15 mg PO HS 04/06/24 04/06/24 Rosuvastatin [Crestor] 20 mg PO DAILY 04/06/24 04/06/24 Tirzepatide [Mounjaro] 5 mg SQ TU 04/06/24 04/06/24 lisinopriL [Zestril] 10 mg PO DAILY 04/06/24 04/06/24 metFORMIN HCL [Glucophage] 500 mg PO DAILY 04/06/24 04/06/24 valACYclovir HCL [Valtrex] 2,000 mg PO BID PRN 04/06/24 04/06/24 Previous Rx's Medication Instructions Recorded Cephalexin [Keflex] 500 mg PO Q6HR 10 Days #40 cap 04/08/24 Doxycycline [Vibramycin] 100 mg PO BID 10 Days #20 capsule 04/08/24 HYDROcodone/APAP 5-325MG [[place] 1 tab PO Q4HR PRN 3 Days #18 tab 05/08/24 5-325] cefaDROXiL [Duricef] 500 mg PO Q12HR #30 cap 05/08/24 Cephalexin [Keflex] 500 mg PO Q6HR 7 Days #28 cap 11/29/24 HYDROcodone/APAP 7.5-325MG [[place] 1 tab PO Q4H PRN 3 Days #18 tab 11/29/24 7.5-325] Allergies Allergy/AdvReac Type Severity Reaction Status Date / Time No Known Allergies Allergy Verified 11/29/24 18:22 Review of Systems ROS Statement: Those systems with pertinent positive or pertinent negative responses have been documented in the HPI. ROS Other: All systems not noted in ROS Statement are negative. Past Medical History Past Medical History: Diabetes Mellitus, Hypertension History of Any Multi-Drug Resistant Organisms: None Reported Past Surgical History: No Surgical Hx Reported Additional Past Surgical History / Comment(s): Right elbow surgery April 2024 Past Psychological History: No Psychological Hx Reported Smoking Status: Never smoker Past Alcohol Use History: Occasional Past Drug Use History: None Reported General Exam Limitations: no limitations General appearance: alert, in no apparent distress Head exam: Present: atraumatic, normocephalic, normal inspection Eye exam: Present: normal appearance, EOMI Neck exam: Present: normal inspection. Absent: meningismus Respiratory exam: Absent: respiratory distress Right Hand Wrist exam: Present: full ROM, tenderness, laceration (Large skin avulsion over the posterior surface of the right index finger) Neurological exam: Present: alert, oriented X3 Psychiatric exam: Present: normal affect, normal mood Course Vital Signs 11/29/24 11/29/24 11/29/24 18:18 19:23 21:31 Temperature 97.8 F Pulse Rate 104 H 91 83 Respiratory 18 18 18 Rate Blood Pressure 165/83 156/94 150/82 O2 Sat by Pulse 97 97 100 Oximetry 11/29/24 22:19 Temperature 97.6 F Pulse Rate 86 Respiratory 18 Rate Blood Pressure 165/95 O2 Sat by Pulse 95 Oximetry Procedures - Laceration Laceration #1 Consent Obtained: verbal consent Indication: laceration Site: hand (Right index finger) Description: avulsion Depth: involves muscle layer Anesthetic Used: lidocaine 1%, without epi Anesthesia Technique: local infiltration, nerve block Pre-repair: wound explored, irrigated extensively Type of Sutures: nylon Size of Sutures: 4-0 Technique: simple, interrupted - Orthopedic Splinting/Casting Injury #1 Side: right Upper Extremity Injury Location: finger Upper Extremity Immobilizer: finger (other) Medical Decision Making - Medical Decision Making Was pt. sent in by a medical professional or institution ([facility], [employer], urgent care, hospital, or longterm...) When possible be specific @ -No Did you speak to anyone other than the patient for history (EMS, parent, family, police, friend...)? What history was obtained from this source @ -No Did you review nursing and triage notes (agree or disagree)? Why? @ -I reviewed and agree with nursing and triage notes Were old charts reviewed (outside hosp., previous admission, EMS record, old EKG, old radiological studies, urgent care reports/EKG's, longterm records)? Report findings @ -No old charts were reviewed Differential Diagnosis (chest pain, altered mental status, abdominal pain women, abdominal pain men, vaginal bleeding, weakness, fever, dyspnea, syncope, headache, dizziness, GI bleed, back pain, seizure, CVA, palpatations, mental health, musculoskeletal)? @ -Differential includes fracture, dislocation, nerve injury, vessel injury, tendon injury, not an all-inclusive list EKG interpreted by me (3pts min.). @ -As above X-rays interpreted by me (1pt min.). @ -X-ray shows soft tissue swelling without evidence for fracture or radiopaque foreign body CT interpreted by me (1pt min.). @ -None done U/S interpreted by me (1pt. min.). @ -None done What testing was considered but not performed or refused? (CT, X-rays, U/S, labs)? Why? @ -None What meds were considered but not given or refused? Why? @ -None Did you discuss the management of the patient with other professionals (professionals i.e. [facility], [employer], lab, RT, psych nurse, clinical social worker, folding rules printing machine operator, teacher, staff readiness officer, geriatric case manager)? Give summary @ -No Was smoking cessation discussed for >3mins.? @ -No Was critical care preformed (if so, how long)? @ -No Were there social determinants of health that impacted care today? How? (Homelessness, low income, unemployed, alcoholism, drug addiction, transportation, low edu. Level, literacy, decrease access to med. care, half-way, rehab)? @ -No Was there de-escalation of care discussed even if they declined (Discuss DNR or withdrawal of care, Hospice)? DNR status @ -No What co-morbidities impacted this encounter? (DM, HTN, Smoking, COPD, CAD, Cancer, CVA, ARF, Chemo, Hep., AIDS, mental health diagnosis, sleep apnea, morbid obesity)? @ -None Was patient admitted / discharged? Hospital course, mention meds given and route, prescriptions, significant lab abnormalities, going to OR and other pertinent info. @ -59-year-old male presenting with chief complaint of large laceration to the right index finger while using a saw today. He has a large skin avulsion to the dorsal surface of the finger. He still has good range of motion and sensation. TXA was applied to the area which helps slow down some bleeding. Several sutures were then applied to help approximate the area and placed pressure on the bleeding. Eventually we got the bleeding to subside. His tetanus is updated today. Prior to applying the sutures the wound was thoroughly irrigated. Patient is placed on Keflex. Patient will follow-up with orthopedics, he has an upcoming appointment with his orthopedist on Sunday for a separate issue, he will also follow-up regarding this injury. Educated on wound care and signs of infection. We placed a splint. Follow-up with PCP. Report back to ER with any new or worsening symptoms. Discussed return parameters and answered all questions. Patient conveyed verbal understanding and agreed to the plan. I discussed this case in detail with my attending Dr. He Undiagnosed new problem with uncertain prognosis? @ -No Drug Therapy requiring intensive monitoring for toxicity (Heparin, Nitro, Insulin, Cardizem)? @ -No Were any procedures done? @ -No Diagnosis/symptom? @ -Laceration Acute, or Chronic, or Acute on Chronic? @ -Acute Uncomplicated (without systemic symptoms) or Complicated (systemic symptoms)? @ -Uncomplicated Side effects of treatment? @ -No Exacerbation, Progression, or Severe Exacerbation? @ -No Poses a threat to life or bodily function? How? (Chest pain, [place], [place], pneumonia, PE, COPD, DKA, ARF, appy, cholecystitis, CVA, Diverticulitis, Homicidal, Suicidal, threat to staff... and all critical care pts) @ -Potential if he does not follow-up with orthopedics Disposition Clinical Impression: Laceration Disposition: HOME SELF-CARE Condition: Good Additional Instructions: Follow-up with your orthopedist at your appointment on Sunday. Report back to ER with any new or worsening symptoms. Take medication as prescribed. Keep your splint on until seen by orthopedics. Prescriptions: Cephalexin [Keflex] 500 mg PO Q6HR 7 Days #28 cap HYDROcodone/APAP 7.5-325MG [[place] 7.5-325] 1 tab PO Q4H PRN 3 Days #18 tab PRN Reason: Pain Is patient prescribed a controlled substance at d/c from ED?: Yes When asked, does pt state using other controlled substances?: No If prescribed controlled substance>3 days was MAPS reviewed?: Prescribed <3 Days If opioid is for acute pain is fill amount 7 days or less?: Yes Referrals: Darcie Willingham DO [Primary Care Provider] - 1-2 days Time of Disposition: 22:08
--- NOTE | 2024-11-29 21:14 | XR ---
EXAMINATION TYPE: XR finger RT DATE OF EXAM: 11/29/2024 8:38 PM COMPARISON: None CLINICAL INDICATION: Male, 59 years old with history of Large laceration index finger; PHH, pain TECHNIQUE: XR finger RT 3 views were obtained. FINDINGS: Normal alignment of the visualized joints. No acute osseous pathology is identified. Mild soft tissue swelling of the second digit. No significant degeneration. No radiopaque foreign bodies. IMPRESSION: Soft tissue swelling without evidence for fracture or radiopaque foreign body. [facility], , 11/29/2024 9:12 PM
[2024-11-29] MEDS: SILVER NITRATE APPLICATOR 1 EACH STICK..EA. TOPICAL STA (21:15)
[2024-11-29] MEDS: LIDOCAINE 1% INJ 10MG/ML (20 ML MDV) SQ ONE (21:19)
[2024-11-29 22:20] VITALS: BP 165/95; PULSE 86; TEMP 97.6
[2024-11-29] MEDS: CEPHALEXIN 500MG STARTER PACK 4 CAP BTL PO STA (22:20)
[2024-11-29] MEDS: traMADol 50 MG STARTER PACK 3 TAB BTL PO STA (22:20)
[2024-11-29] MEDS: CEPHALEXIN 500 MG CAP PO STA (22:21)
== END 2024-11-29 22:25 | disposition home or self-care (01) ==
LOC: EC 18:07
DX: S61.210A Laceration without foreign body of right index finger without damage to nail, initial encounter (principal); W27.0XXA Contact with workbench tool, initial encounter
CPT/HCPCS: 73140; 99283; 96372 ×2; 12001; J1171; J2003